=== PATIENT | female | born 1995 | race Caucasian/White ===

== ENCOUNTER 2017-03-04 21:05 | Emergency (ER) | payer OTHER ==
[~2017-03-04] VITALS: Ht 149.9 cm; Wt 81.8 kg
[~2017-03-04 21:05] MED LIST: ATARAX,VISTARIL25 MG PO; FLUOXETINE HCL20 MG PO; METHADONE 22 MG/1 ML PO
[2017-03-04 22:35] VITALS: BP 121/78
== END 2017-03-04 22:36 | disposition home or self-care (01) ==
LOC: EME 21:05
DX: S90.31XA Contusion of right foot, initial encounter (principal); X50.9XXA Other and unspecified overexertion or strenuous movements or postures, initial encounter
CPT/HCPCS: 73630; 99281; 99284